=== PATIENT | female | born 1945 | race Caucasian/White ===

== ENCOUNTER 2021-12-01 07:29 | Outpatient (CLI) | payer OTHER ==
[~2021-12-01 07:29] MED LIST: ARICEPT5 MG; MELOXICAM7.5 MG; TOPROL XL25 M1; ZYRTEC10 M3
== END 2021-12-01 07:30 | disposition home or self-care (01) ==
LOC: NUCLEAR 07:29
PROVIDERS: ATTEND Surgery
DX: C50.412 Malignant neoplasm of upper-outer quadrant of left female breast (principal)
CPT/HCPCS: 78812; A9552

== ENCOUNTER → 2022-02-19 | Day surgery (SDC) | payer OTHER ==
[~2022-02-19] VITALS: Ht 154.9 cm; Wt 69.9 kg
[~2022-02-19] MED LIST changes: +ANASTROZOLE1 MG PO; +NEURONTIN300 MG PO; +PROAIR RESPICL90 MCG IH; +[UNRECOGNIZED DRUG - OTHER] PO
== END | disposition home or self-care (01) ==
LOC: ADM 02-17 15:15 → CIR.AMB 06:00
PROVIDERS: ATTEND Surgery
DX: D05.12 Intraductal carcinoma in situ of left breast (principal); R59.0 Localized enlarged lymph nodes; Z20.822 Contact with and (suspected) exposure to COVID-19; I10 Essential (primary) hypertension; J45.909 Unspecified asthma, uncomplicated; G30.9 Alzheimer's disease, unspecified; G62.2 Polyneuropathy due to other toxic agents; T45.1X5A Adverse effect of antineoplastic and immunosuppressive drugs, initial encounter
CPT/HCPCS: 19301; 19281; 38525; 78195; A9541; L8600